=== PATIENT | male | born 1970 | race Caucasian/White ===

== ENCOUNTER 2025-06-26 18:32 | Emergency (ER) | payer MEDICAID ==
[2025-06-26] MEDS ORDERED: Heparin Sodium 5,000 Units/ML Vial IVPUSH ONE (18:43)
[2025-06-26 18:46] LABS: BASOPHILS ABSOLUTE AUTO 0.06 K/uL (0.00-0.20); BASOPHILS PERCENT AUTO 0.9 % (0.0-2.0); EOSINOPHILS ABSOLUTE AUTO 0.03 K/uL (0.00-0.50); EOSINOPHILS PERCENT AUTO 0.4 % (0.0-5.0); IMMATURE GRAN ABSOLUTE AUTO 0.03 10^3/uL (0.00-0.04); IMMATURE GRAN PERCENT AUTO 0.4 % (0.0-0.4); LYMPHOCYTES ABSOLUTE AUTO 1.01 K/uL (0.50-3.50); LYMPHOCYTES PERCENT AUTO 14.7 % (10.0-50.0); MONOCYTES ABSOLUTE AUTO 1.10 K/uL (0.00-1.00); MONOCYTES PERCENT AUTO 16.0 % (2.0-14.0); NEUTROPHILS ABSOLUTE AUTO 4.64 K/uL (1.40-7.00); NEUTROPHILS PERCENT AUTO 67.6 % (45.0-80.0); PLATELET COUNT,PLT 249 K/uL (150-350); RED BLOOD CELL COUNT 3.80 M/uL (4.33-5.41); RED CELL DISTRIBUTION WIDTH 14.7 % (11.2-14.1); WHITE BLOOD CELL COUNT,WBC 6.9 K/uL (4.0-10.2)
[2025-06-26] MEDS: Heparin Sodium 5,000 Units/ML Vial IVPUSH ONE ×2 (18:46→19:30)
[2025-06-26] MEDS: Heparin Sodium/0.45% NaCl 500 ML IV SCH (18:47)
[2025-06-26 19:12] LABS: INR 1.0 (0.9-1.1); PTT,PARTIAL THROMBOPLSTIN TIME 20.7 SEC (23.8-34.4)
[2025-06-26 19:28] LABS: BLOOD UREA NITROGEN,BUN 22 mg/dL (7-18); CARBON DIOXIDE,CO2 28.2 mmol/L (21.0-32.0); CHLORIDE,CL 98 mmol/L (98-107); CREATINE KINASE,CK 379 U/L (26-308); CREATININE 1.99 mg/dL (0.51-1.17); ETHANOL BLOOD MEDICAL 0.337 g/dL (0.000-0.080); GLUCOSE RANDOM 128 mg/dL (70-99); POTASSIUM,K 3.1 mmol/L (3.5-5.1); SODIUM,NA 141 mmol/L (136-145); TSH ULTRASENSITIVE 4.373 mIU/mL (0.358-3.740)
[2025-06-26 19:30] LABS: ESTIMATED GFR 39 mL/min (>=60)
[2025-06-26] MEDS: Heparin Sodium 5,000 Units/ML Vial ONE (19:31)
== END 2025-06-26 20:04 ==
LOC: LL.ED 18:32
DX: I46.9 Cardiac arrest, cause unspecified (principal); I95.9 Hypotension, unspecified; E86.0 Dehydration; Z88.0 Allergy status to penicillin; Z79.899 Other long term (current) drug therapy
CPT/HCPCS: 36415; 71045; 80048; 80307; 82550; 83605; 83735; 84443; 84484; 85025; 85610; 85730; 93005; 96365; 96375; 96376; 99285-25; A9270-GY; J1644; J7030